=== PATIENT | male | born 1995 | race Two or more races ===

== ENCOUNTER 2018-10-13 18:40 | Emergency (ER) | payer MEDICAID, OTHER ==
[~2018-10-13] VITALS: Ht 172.7 cm; Wt 113.4 kg
[2018-10-13] MEDS ORDERED: fentaNYL CITRATE 100 MCG/2 ML VL IV ONE ×3 (19:15→23:45)
[2018-10-13] MEDS ORDERED: KETOROLAC TROMETH 30 MG/ML 1ML VIAL IV ONE (19:15)
[2018-10-13] MEDS ORDERED: PROPOFOL 10 MG/ML 20 ML IV ONE (21:30)
[2018-10-13] MEDS ORDERED: PROPOFOL 100 ML IV ONE (22:47)
[2018-10-14] MEDS ORDERED: PROPOFOL 10 MG/ML 20 ML IV ONE ×2 (00:15→00:30)
[2018-10-14 01:50] VITALS: BP 159/81
[2018-10-14] MEDS ORDERED: fentaNYL CITRATE 100 MCG/2 ML VL IV ONE (02:15)
== END 2018-10-14 02:19 | disposition short-term general hospital (02) ==
LOC: ER 18:40
DX: S43.015A Anterior dislocation of left humerus, initial encounter (principal); V86.56XA Driver of dirt bike or motor/cross bike injured in nontraffic accident, initial encounter; Y93.89 Activity, other specified; Y99.8 Other external cause status; Y92.410 Unspecified street and highway as the place of occurrence of the external cause
CPT/HCPCS: 23650; 73020; 73030; 73060; 99152; 99285; J1885; J2704; J3010